=== PATIENT | female | born 1990 | race African-American/Black ===

== ENCOUNTER 2019-10-20 12:24 | Emergency (ER) | payer MEDICAID, OTHER ==
[~2019-10-20] VITALS: Ht 162.6 cm; Wt 117.9 kg
[2019-10-20 15:54] VITALS: BP 133/86
== END 2019-10-20 15:21 | disposition home or self-care (01) ==
LOC: ER 12:24
DX: S46.911A Strain of unspecified muscle, fascia and tendon at shoulder and upper arm level, right arm, initial encounter (principal); J45.909 Unspecified asthma, uncomplicated; Y04.0XXA Assault by unarmed brawl or fight, initial encounter; Y93.89 Activity, other specified; Y92.89 Other specified places as the place of occurrence of the external cause; Y99.8 Other external cause status
CPT/HCPCS: 73030

== ENCOUNTER 2020-03-17 12:04 | Emergency (ER) | payer MEDICAID ==
[~2020-03-17] VITALS: Ht 160 cm; Wt 113.4 kg
[2020-03-17 12:29] VITALS: BP 148/82
[2020-03-17 12:53] LABS: Urine Bacteria NONE SEEN /hpf (None Seen); Urine Blood Negative /uL (Negative); Urine Mucus FEW (None Seen); Urine Specific Gravity 1.022 (1.001-1.035); Urine WBC 1 /hpf (0 - 5)
== END 2020-03-17 17:22 | disposition left against medical advice (07) ==
LOC: ER 12:04
DX: K52.9 Noninfective gastroenteritis and colitis, unspecified (principal); F17.210 Nicotine dependence, cigarettes, uncomplicated; Z20.828 Contact with and (suspected) exposure to other viral communicable diseases
CPT/HCPCS: 36415; 71045; 81001; 87070; 87426; 87804; 87880

== ENCOUNTER 2020-04-02 16:38 | Emergency (ER) | payer MEDICAID ==
[~2020-04-02] VITALS: Ht 160 cm; Wt 114.8 kg
[2020-04-02 17:23] VITALS: BP 127/92
[2020-04-02] MEDS ORDERED: LIDOCAINE 1% HCL (LOCAL ANESTH.) INJ 20ML MDV IJ ONE (17:30)
== END 2020-04-02 18:08 | disposition home or self-care (01) ==
LOC: ER 16:38
DX: S81.811A Laceration without foreign body, right lower leg, initial encounter (principal); F17.210 Nicotine dependence, cigarettes, uncomplicated; W25.XXXA Contact with sharp glass, initial encounter; Y93.89 Activity, other specified; Y92.89 Other specified places as the place of occurrence of the external cause; Y99.8 Other external cause status
CPT/HCPCS: 12002; 99283; J2001